=== PATIENT | female | born 1995 | race Caucasian/White ===

== ENCOUNTER → 2019-12-06 14:16 | Outpatient (BNVA) | payer MEDICAID, SELFPAY | PROVIDERS: Family Provider Obstetrics & Gynecology; PCP Obstetrics & Gynecology; Visit Provider Nurse Practitioner Women's Health | DX: Z01.419 Encounter for gynecological examination (general) (routine) without abnormal findings (principal); Z11.3 Encounter for screening for infections with a predominantly sexual mode of transmission; N92.6 Irregular menstruation, unspecified; Z13.0 Encounter for screening for diseases of the blood and blood-forming organs and certain disorders involving the immune mechanism | CPT/HCPCS: 84146; 84439; 84443; 84702; 85025; 87491; 87591; 87661; 88175 ==

== ENCOUNTER → 2019-12-27 16:13 | Outpatient (BNVA) | payer MEDICAID, SELFPAY | PROVIDERS: Family Provider Obstetrics & Gynecology; PCP Obstetrics & Gynecology; Visit Provider Obstetrics & Gynecology | DX: R79.89 Other specified abnormal findings of blood chemistry (principal); N92.6 Irregular menstruation, unspecified | CPT/HCPCS: 76830; 84443 ==

== ENCOUNTER → 2020-01-18 14:45 | Outpatient (BNVA) | payer MEDICAID, SELFPAY | PROVIDERS: Family Provider Obstetrics & Gynecology; PCP Obstetrics & Gynecology; Visit Provider Nurse Practitioner Women's Health | DX: N92.6 Irregular menstruation, unspecified (principal) | CPT/HCPCS: 81025; 88305 ==

== ENCOUNTER → 2020-07-26 15:09 | Outpatient (BNVA) | payer BC, MEDICAID, SELFPAY | PROVIDERS: Family Provider Obstetrics & Gynecology; PCP Obstetrics & Gynecology; Visit Provider Emergency Medicine | DX: J35.1 Hypertrophy of tonsils (principal); J02.9 Acute pharyngitis, unspecified; J03.90 Acute tonsillitis, unspecified | CPT/HCPCS: 87880 ==

== ENCOUNTER → 2020-08-09 16:20 | Outpatient (BNVA) | payer BC, MEDICAID, SELFPAY | PROVIDERS: Family Provider Obstetrics & Gynecology; PCP Obstetrics & Gynecology; Visit Provider Nurse Practitioner Women's Health | DX: N92.6 Irregular menstruation, unspecified (principal); E66.01 Morbid (severe) obesity due to excess calories | CPT/HCPCS: 80053; 84702; 85025 ==

== ENCOUNTER 2020-09-03 16:52 | Emergency (ER) | payer MEDICAID, BC, SELFPAY ==
[2020-09-03 17:46] VITALS: BP 133/105; PULSE 120; RESP 15; TEMP 37; O2SAT 94; BMI 60.7
--- NOTE | 2020-09-03 17:58 | ED_ITS ---
HPI - Skin/Abscess/Foreign Bdy General: Chief complaint: Skin/Abscess/Foreign Body Stated complaint: Rash/Bumps Across Chest Area Time Seen by Provider: 09/03/20 17:52 Source: patient Mode of arrival: ambulatory Limitations: no limitations History of Present Illness: Associated symptoms: Deny chills, fever(s), nausea or vomiting Review of Systems Const: Denies: fever(s) or chills Eyes: Denies: change in vision, blurry vision, blind spots, photophobia, eye discomfort, eye discharge, eye redness, floaters or seeing flashes ENMT: Denies: throat pain, uvular edema, enlarged tonsils, odynophagia, hoarseness, mouth pain, swelling of lips/tongue, oral sores, bleeding gums, dental pain, dry mouth, ear or mastoid pain, ear discharge, change in hearing, tinnitus, disequilibrium, nasal discharge, nasal congestion, post nasal drip or sinus pain Card: Denies: chest pain, palpitations, irregular heart rhythm, edema, swelling of feet/ankles, lightheadedness, syncope, pre-syncope, dyspnea on exertion, orthopnea, leg pain with exertion or acrocyanosis Resp: Denies: dyspnea, productive cough, non-productive cough, wheezing, stridor, pain on inspiration, change in phlegm color, hemoptysis or chest congestion GI: Denies: nausea or vomiting : Denies: flank pain, difficulty voiding, dysuria, urinary frequency, urinary urgency, urinary hesitancy or hematuria Musc: Denies: neck pain, back pain, extremity pain, extremity swelling, joint pain, joint swelling, joint redness, joint warmth or deformity Skin/Breast: Reports: rash (burning rash to right side of chest wall anterior and posterios); Denies: pruritus, erythema, sores, new lesions, changes in skin color or dry skin Neuro: Denies: headache(s), numbness in extremities, weakness in extremities, sensory changes, lack of coordination, difficulty walking, frequent falls, dizziness, vertigo, confusion, behavioral changes, Slurred speech present, difficulty communicating thoughts or seizure-like activity Psych: Denies: anxiety, depression, suicidal ideation or homicidal ideation Endo: Denies: polyuria, polydipsia, tired all the time, cold intolerance, excessive sweating, flushing, hot flashes or heat intolerance Robel/Lymph: Denies: easy bruising, easy bleeding, petechiae, purpura, enlarged lymph nodes or tender lymph nodes All/Imm: Denies: urticaria, throat swelling, tongue swelling, facial swelling, acute wheezing or itchy eyes PFSH ED PFSH: Medical History Chronic tonsillar hypertrophy History of kidney problems Per patient's mother, patient had a 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 She states they were discussing surgery due to the kidney. However, the kidney started functioning. Renal ultrasound 01/16/2017 did NOT show significant atrophy of the left kidney. No hydronephrosis. Irregular menses Morbid obesity Pelvic pain Surgical History History of section, low transverse (~09/01/18) Dr. Torres at [facility] Family History Sister No problems noted. Mother Thyroid disease Father Hypertension Diabetes Stroke Thyroid disease Grandmother Thyroid disease maternal and paternal Grandfather Thyroid disease maternal and paternal Family/Other Breast cancer maternal great aunt Denies family history of Colon cancer Ovarian cancer Heart disease Hypercholesteremia Uterine cancer Social History Smoking and tobacco status: current every day smoker cigarettes Packs smoked per day: 0.5 Years cigarettes smoked: 8 Additional social history: - Tobacco: currently 1/2 ppd Alcohol: None Drug: None Physical Exam Const: COMMON NORMALS: no acute distress, patient oriented x3, healthy appearing, alert and well nourished GENERAL APPEARANCE: cooperative, comfortable, well kempt and well developed; not ill appearing ORIENTATION/CONSCIOUSNESS: Yes awake, Yes oriented to person, Yes oriented to place and Yes oriented to time HENMT: COMMON NORMALS: normocephalic, atraumatic, hearing grossly normal bilaterally, external ears normal, EAC's normal, TM's normal bilaterally, Normal external nose present, Normal nasal mucous membranes and turbinates present and moist oral mucous membranes HEAD & SCALP: normal to inspection, normocephalic and atraumatic FACE & SINUS: normal facial exam, sinuses nontender and face symmetric NOSE: Normal external nose present, Normal nares present, Normal nasal mucous membranes and turbinates present, No nasal discharge present and Abnormal external nose present EXTERNAL EAR: Yes external ears normal and Yes mastoids normal EXTERNAL AUDITORY CANAL: EAC's normal TYMPANIC MEMBRANE: TM's normal bilaterally MOUTH: Normal oral and palatal mucosa present, lip normal, tongue normal and Normal salivary glands and ducts present THROAT: no uvular edema Eye: COMMON NORMALS: Equal, round and reactive pupils present, EOMs intact bilaterally, conjunctivae normal, no scleral icterus and no papilledema GENERAL EYE: appearance normal, both eyes and all related structures EYELID: eyelids normal CONJUNCTIVA: Yes conjunctivae normal SCLERA: sclerae normal CORNEA: Yes corneas normal PUPIL: Yes Equal, round and reactive pupils present DIRECT OPHTHALMOSCOPY: Yes no papilledema Neck/C-Spine: COMMON NORMALS: no JVD Resp: COMMON NORMALS: normal respiratory effort, No retractions, No use of accessory muscles and clear to auscultation bilaterally EFFORT & INSPECTION: Yes able to speak in complete sentences and Yes symmetric chest movement AUSCULTATION: clear to auscultation bilaterally Cardio: COMMON NORMALS: no JVD, regular rate and regular rhythm RATE: regular rate RHYTHM: regular rhythm Extremity: COMMON NORMALS: normal to inspection, full ROM and capillary refill normal GENERAL: Yes normal exam except as noted Neuro: COMMON NORMALS: patient oriented x3, CN's II-XII intact bilaterally, moves all extremities, no focal motor deficits, no sensory deficits noted, deep tendon reflexes 2+ bilaterally and gait normal SENSORIUM/ORIENTATION: Yes alert, Yes oriented to person, Yes oriented to place and Yes oriented to time Psych: COMMON NORMALS: mental status grossly normal, Normal thought process present, cooperative, normal affect, speech normal, activity/motor behavior normal, denies hallucinations, denies homicidal ideation and denies suicidal ideation APPEARANCE: Yes grossly normal and Yes well kempt ATTITUDE: Yes calm ACTIVITY/MOTOR BEHAVIOR: Yes appropriate eye contact SPEECH: Yes normal speech THOUGHT PROCESS: Normal thought process present THOUGHT CONTENT: Yes Normal thought content present ATTENTION/CONCENTRATION: Yes attention grossly intact MEMORY/COGNITION: Yes memory grossly intact INSIG HT: Good insight present (Psych) JUDGEMENT: Good judgement present (Psych) Skin: COMMON NORMALS: no rashes or lesions noted (vesicular ccrusting erythema rash noted to anterior and posteriot chest wal), no wounds, turgor normal, no jaundice, no petechiae and no mottling GENERAL SKIN EXAM: no rashes or lesions noted (vesicular ccrusting erythema rash noted to anterior and posteriot chest wal) and turgor normal Course Vital Signs: Vital signs: Vital Signs Temperature 98.6 F 09/03/20 17:46 Pulse Rate 120 H 09/03/20 17:46 Respiratory Rate 15 09/03/20 17:46 Blood Pressure 133/105 09/03/20 17:46 Pulse Oximetry 94 09/03/20 17:46 MDM - Skin/Abscess/Foreign Bdy MDM Narrative: Medical decision making narrative: Pt is well appearing non toxic and in no acute distress. pt is afebrile and has no evidence of menigeal irritation. Pt rash is c/w shingles and does not cross midline. I will start patient on appropriate treatment and discuss home care and return precautions with patient. Discharge Plan Discharge Patient Disposition: Home Clinical Impression: Shingles Qualifiers: Herpes zoster complications: without complications Qualified Code(s): B02.9 - Zoster without complications Condition: Stable Prescriptions: New valacyclovir 1 gram tablet 1,000 mg PO BID 10 Days Qty: 20 RF: 0 No Action acetaminophen [Tylenol] 325 mg capsule 325 mg PO QID PRNRF: 0 silver nitrate applicators 75-25 % stick 1 applic TOPICAL ONCE Qty: 1 RF: 0 metformin 500 mg tablet extended release 24 hr 1,000 mg PO DAILY Qty: 60 RF: 6 Discharge Orders: Discharge ED (Routine); Ordered 09/03/20 Ordered By: Donna Rosales Referrals: Moreno Lambert MD [Primary Care Provider] - Discharge Diet: Advance as tolerated Discharge Activity: Increase activity as tolerated Patient Instructions: Opioid Safety Activity Restrictions/Additional Instructions: Please follow discharge instructions and take medications as directed Cool compresses to area of discomfort Coding Level of Care Code ED Digital Traffic Coordinator for [facility]
== END 2020-09-03 18:52 | disposition home or self-care (01) ==
PROVIDERS: Emergency Provider Registered Nurse; PCP Obstetrics & Gynecology
DX: B02.9 Zoster without complications (principal); F17.210 Nicotine dependence, cigarettes, uncomplicated
CPT/HCPCS: 99282

== ENCOUNTER → 2020-12-06 15:25 | Outpatient (BNVA) | payer BC, MEDICAID, SELFPAY | PROVIDERS: PCP Obstetrics & Gynecology; Visit Provider Nurse Practitioner Women's Health | DX: N92.6 Irregular menstruation, unspecified (principal) | CPT/HCPCS: 84702 ==

== ENCOUNTER → 2021-02-07 16:20 | Outpatient (BNVA) | payer BC, MEDICAID, SELFPAY | PROVIDERS: PCP Obstetrics & Gynecology; Visit Provider Obstetrics & Gynecology | DX: E28.2 Polycystic ovarian syndrome (principal); N92.6 Irregular menstruation, unspecified | CPT/HCPCS: 83036; 83525; 84443; 84702 ==

== ENCOUNTER → 2021-02-13 14:46 | Outpatient (BNVA) | payer BC, MEDICAID, SELFPAY | PROVIDERS: PCP Obstetrics & Gynecology; Visit Provider Nurse Practitioner Women's Health | DX: N92.6 Irregular menstruation, unspecified (principal); E66.01 Morbid (severe) obesity due to excess calories | CPT/HCPCS: 76830 ==

== ENCOUNTER → 2021-03-07 14:23 | Outpatient (BNVA) | payer BC, MEDICAID, SELFPAY | PROVIDERS: PCP Obstetrics & Gynecology; Referring Provider Obstetrics & Gynecology; Visit Provider Internal Medicine | DX: N91.2 Amenorrhea, unspecified (principal); R79.89 Other specified abnormal findings of blood chemistry; N64.3 Galactorrhea not associated with childbirth; H53.2 Diplopia; E66.01 Morbid (severe) obesity due to excess calories; Z68.44 Body mass index [BMI] 60.0-69.9, adult | CPT/HCPCS: 99204 ==

== ENCOUNTER 2021-03-07 15:06 | Outpatient (CLI) | payer BC, MEDICAID, SELFPAY ==
[2021-03-07 16:22] LABS: Free T4 Free Thyroxine 0.94 ng/dL (0.82-1.77); Thyroid Stimulating Hormone 4.61 uIU/mL (0.27-4.20)
[2021-03-07 17:06] LABS: Follicle Stimulating Hormone 4.5 mIU/mL; Luteinizing Hormone 10.6 mIU/mL (0.5-41.7); Prolactin 8.23 ng/mL (4.8-23.3)
[2021-03-08 11:13] LABS: T3 Total 142 ng/dL (76-181)
[2021-03-08 14:12] LABS: Thyroglobulin AB <1 IU/mL (< or = 1)
[2021-03-08 14:26] LABS: Thyroid Peroxidase Antobodies 1 IU/mL (<9)
[2021-03-13 20:13] LABS: Estrogens Total 607.2 pg/mL
== END 2021-03-07 15:07 | disposition home or self-care (01) ==
PROVIDERS: PCP Nurse Practitioner Women's Health; Visit Provider Internal Medicine
DX: N64.3 Galactorrhea not associated with childbirth (principal); N91.2 Amenorrhea, unspecified; R79.89 Other specified abnormal findings of blood chemistry
CPT/HCPCS: 36415; 82672; 83001; 83002; 83516; 84146; 84439; 84443; 84480; 86376; 86800

== ENCOUNTER → 2021-05-13 14:49 | Outpatient (BNVA) | payer BC, MEDICAID, SELFPAY | PROVIDERS: PCP Nurse Practitioner Women's Health; Visit Provider Internal Medicine | DX: E03.9 Hypothyroidism, unspecified (principal); R79.89 Other specified abnormal findings of blood chemistry; N91.2 Amenorrhea, unspecified; N64.3 Galactorrhea not associated with childbirth; E66.01 Morbid (severe) obesity due to excess calories; Z68.44 Body mass index [BMI] 60.0-69.9, adult; H53.2 Diplopia; F17.200 Nicotine dependence, unspecified, uncomplicated | CPT/HCPCS: 99214 ==

== ENCOUNTER 2021-05-22 16:37 | Outpatient (CLI) | payer BC, MEDICAID, SELFPAY ==
[2021-05-22 19:42] LABS: Free T4 Free Thyroxine 1.39 ng/dL (0.82-1.77); Thyroid Stimulating Hormone 1.91 uIU/mL (0.27-4.20)
[2021-05-30 16:21] LABS: Estrogens Total 535.4 pg/mL
== END 2021-05-22 16:38 | disposition home or self-care (01) ==
PROVIDERS: PCP Nurse Practitioner Women's Health; Visit Provider Internal Medicine
DX: E03.9 Hypothyroidism, unspecified (principal); R79.89 Other specified abnormal findings of blood chemistry; N91.2 Amenorrhea, unspecified
CPT/HCPCS: 36415; 82672; 84439; 84443

== ENCOUNTER → 2021-07-11 15:06 | Outpatient (BNVA) | payer BC, MEDICAID, SELFPAY | PROVIDERS: PCP Nurse Practitioner Women's Health; Visit Provider Internal Medicine | DX: E03.9 Hypothyroidism, unspecified (principal); N64.3 Galactorrhea not associated with childbirth; H53.2 Diplopia; E66.01 Morbid (severe) obesity due to excess calories; Z68.44 Body mass index [BMI] 60.0-69.9, adult; F17.210 Nicotine dependence, cigarettes, uncomplicated | CPT/HCPCS: 99214 ==

== ENCOUNTER 2021-08-05 15:25 | Outpatient (CLI) | payer BC, MEDICAID, SELFPAY ==
--- NOTE | 2021-08-05 15:32 | MR_ITS ---
WS: [id number] MRI HEAD WITHOUT CONTRAST TECHNIQUE: Sagittal T1, T2 axial, T2 axial FLAIR, axial and coronal T1 images, axial susceptibility w eighted imaging, axial diffusion weighted images, and coronal T2 images were obtained. CLINICAL INFORMATION: Changes to pituitary gland COMPARISON: None. FINDINGS: Contrast was not administered. Patient elected to end the exam early. No evidence of restricted diffusion to suggest acute ischemia. Ventricular system and basal cisterns are patent. Normal posterior fossa. Normal vascular flow voids at the skull base. No extra-axial flui d collections. No evidence of mass or mass effect. Mild mucosal thickening in the ethmoid air cells a nd frontal sinuses. Mastoid air cells well aerated. No hemosiderin on susceptibly weighted images. Normal optic chiasm and pituitary infundibulum. Tempor al lobes and hippocampal formations are normal in appearance. Normal cavernous sinuses and Meckel's c ave. Noncontrast sella appears normal although incompletely evaluated. No suprasellar mass. MR/MR head wo con* [id number] IMPRESSION: 1. Contrast not administered. Patient elected to terminate the exam early. 2. No evidence of restricted diffusion to suggest acute ischemia. 3. No suspicious intracranial signal abnormalities. 4. Noncontrast sella appears unremarkable. Normal optic chiasm and pituitary i nfundibulum. No evidence of suprasellar mass. Incomplete evaluation of the sell a without contrast. 5. Mild mucosal thickening in the frontal sinuses and paranasal sinuses. Masto id air cells well aerated.
== END 2021-08-05 15:26 | disposition home or self-care (01) ==
LOC: RAD 15:26
PROVIDERS: PCP Nurse Practitioner Women's Health; Visit Provider Internal Medicine
DX: E23.6 Other disorders of pituitary gland (principal)
CPT/HCPCS: 70551

== ENCOUNTER → 2021-09-12 16:21 | Outpatient (BNVA) | payer BC, MEDICAID, SELFPAY | PROVIDERS: PCP Nurse Practitioner Women's Health; Visit Provider Internal Medicine | DX: E03.9 Hypothyroidism, unspecified (principal) | CPT/HCPCS: 84439; 84443 ==

== ENCOUNTER 2021-09-13 15:34 | Outpatient (CLI) | payer BC, MEDICAID, SELFPAY ==
[2021-09-13 16:52] LABS: Free T4 Free Thyroxine 1.44 ng/dL (0.82-1.77); Thyroid Stimulating Hormone 1.69 uIU/mL (0.27-4.20)
== END 2021-09-13 15:35 | disposition home or self-care (01) ==
LOC: LAB 15:41
PROVIDERS: PCP Nurse Practitioner Women's Health; Visit Provider Internal Medicine
DX: E03.9 Hypothyroidism, unspecified (principal); R79.89 Other specified abnormal findings of blood chemistry
CPT/HCPCS: 36415; 84439; 84443

== ENCOUNTER → 2021-09-16 14:59 | Outpatient (BNVA) | payer BC, MEDICAID, SELFPAY | PROVIDERS: PCP Nurse Practitioner Women's Health; Visit Provider Internal Medicine | DX: E03.9 Hypothyroidism, unspecified (principal); N64.3 Galactorrhea not associated with childbirth; H53.2 Diplopia; E66.01 Morbid (severe) obesity due to excess calories; G43.909 Migraine, unspecified, not intractable, without status migrainosus; Z68.44 Body mass index [BMI] 60.0-69.9, adult; F17.210 Nicotine dependence, cigarettes, uncomplicated | CPT/HCPCS: 99214 ==

== ENCOUNTER → 2021-11-25 14:57 | Outpatient (BNVA) | payer BC, MEDICAID, SELFPAY | PROVIDERS: PCP Family Medicine; Visit Provider Family Medicine | DX: E03.9 Hypothyroidism, unspecified (principal); F51.01 Primary insomnia; I10 Essential (primary) hypertension; F41.9 Anxiety disorder, unspecified | CPT/HCPCS: 84439; 84443 ==

== ENCOUNTER → 2021-12-04 14:56 | Outpatient (BNVA) | payer BC, MEDICAID, SELFPAY | PROVIDERS: PCP Family Medicine; Visit Provider Internal Medicine | DX: E03.9 Hypothyroidism, unspecified (principal); R79.89 Other specified abnormal findings of blood chemistry; N64.3 Galactorrhea not associated with childbirth; H53.2 Diplopia; R53.83 Other fatigue; G43.909 Migraine, unspecified, not intractable, without status migrainosus; E66.01 Morbid (severe) obesity due to excess calories; Z68.44 Body mass index [BMI] 60.0-69.9, adult; F17.210 Nicotine dependence, cigarettes, uncomplicated; Z79.4 Long term (current) use of insulin | CPT/HCPCS: 99214 ==

== ENCOUNTER 2022-06-04 13:46 | Outpatient (CLI) | payer BC, MEDICAID, SELFPAY ==
[2022-06-04 14:57] LABS: Free T4 Free Thyroxine 1.18 ng/dL (0.82-1.77); Thyroid Stimulating Hormone 6.77 uIU/mL (0.27-4.20)
[2022-06-04 15:21] LABS: Prolactin 8.16 ng/mL (4.8-23.3)
== END 2022-06-04 13:47 | disposition home or self-care (01) ==
PROVIDERS: PCP Family Medicine; Visit Provider Internal Medicine
DX: E03.9 Hypothyroidism, unspecified (principal)
CPT/HCPCS: 36415; 84146; 84439; 84443

== ENCOUNTER → 2022-12-09 15:47 | Outpatient (BNVA) | payer BC, MEDICAID, SELFPAY | PROVIDERS: PCP Family Medicine; Referring Provider Internal Medicine; Visit Provider Internal Medicine | DX: E03.9 Hypothyroidism, unspecified (principal) | CPT/HCPCS: 84439; 84443 ==

== ENCOUNTER → 2023-01-07 14:55 | Outpatient (BNVA) | payer BC, MEDICAID, SELFPAY | PROVIDERS: PCP Family Medicine; Visit Provider Family Medicine | DX: E28.2 Polycystic ovarian syndrome (principal); I10 Essential (primary) hypertension; R00.0 Tachycardia, unspecified; J06.9 Acute upper respiratory infection, unspecified; G47.00 Insomnia, unspecified; J45.20 Mild intermittent asthma, uncomplicated; G43.009 Migraine without aura, not intractable, without status migrainosus; Z13.220 Encounter for screening for lipoid disorders; Z13.6 Encounter for screening for cardiovascular disorders; E03.9 Hypothyroidism, unspecified; E66.01 Morbid (severe) obesity due to excess calories; Z68.44 Body mass index [BMI] 60.0-69.9, adult; F51.01 Primary insomnia | CPT/HCPCS: 80053; 80061; 84402; 84403 ==

== ENCOUNTER → 2023-05-14 13:14 | Outpatient (BNVA) | payer BC, MEDICAID, SELFPAY | PROVIDERS: PCP Family Medicine; Referring Provider Internal Medicine; Visit Provider Internal Medicine | DX: E03.9 Hypothyroidism, unspecified (principal); E66.01 Morbid (severe) obesity due to excess calories; Z68.44 Body mass index [BMI] 60.0-69.9, adult; R79.89 Other specified abnormal findings of blood chemistry | CPT/HCPCS: 84439; 84443 ==

== ENCOUNTER → 2023-12-18 10:01 | Outpatient (BNVA) | payer BC, MEDICAID, SELFPAY | PROVIDERS: PCP Family Medicine | DX: I10 Essential (primary) hypertension (principal) | CPT/HCPCS: 80053; 81025; 85025 ==

== ENCOUNTER → 2024-01-25 10:21 | Outpatient (BNVA) | payer BC, MEDICAID, SELFPAY | PROVIDERS: PCP Family Medicine | DX: R39.9 Unspecified symptoms and signs involving the genitourinary system (principal) | CPT/HCPCS: 81000 ==

== ENCOUNTER → 2024-01-27 12:39 | Outpatient (BNVA) | payer BC, SELFPAY | PROVIDERS: PCP Family Medicine; Visit Provider Nurse Practitioner Women's Health | DX: Z12.4 Encounter for screening for malignant neoplasm of cervix (principal); R53.83 Other fatigue; F51.01 Primary insomnia | CPT/HCPCS: 83036; 87624 ==

== ENCOUNTER → 2024-02-15 08:35 | Outpatient (BNVA) | payer BC, SELFPAY | PROVIDERS: PCP Family Medicine; Visit Provider Nurse Practitioner Women's Health | DX: N92.6 Irregular menstruation, unspecified (principal); N83.201 Unspecified ovarian cyst, right side | CPT/HCPCS: 76830 ==

== ENCOUNTER → 2024-03-02 14:38 | Outpatient (BNVA) | payer BC, SELFPAY | PROVIDERS: PCP Family Medicine; Visit Provider Nurse Practitioner | DX: J02.9 Acute pharyngitis, unspecified (principal) | CPT/HCPCS: 87880 ==

== ENCOUNTER 2024-03-18 11:41 | Outpatient (CLI) | payer BC, SELFPAY ==
--- NOTE | 2024-03-18 11:44 | XR_ITS ---
WS: [id number] Exam: XR shoulder LT min 2V* [id number] Date/Time of Exam: 03/18/2024 12:10 PM Reason For Exam: fall No fracture. The joints are preserved. Normal soft tissues. XR/XR shoulder LT min 2V* [id number] IMPRESSION: 1. Normal LEFT shoulder.
--- NOTE | 2024-03-18 11:44 | XR_ITS ---
WS: [id number] Exam: XR ribs LT 2V* [id number] Date/Time of Exam: 03/18/2024 12:10 PM Reason For Exam: rib pain No acute LEFT rib fracture or pneumothorax noted. Questionable small infiltrate in the LEFT lower lob e and trace LEFT basal pleural effusion. XR/XR ribs LT 2V* [id number] IMPRESSION: 1. Negative LEFT ribs. 2. Questionable small LEFT lower lobe infiltrate and small LEFT pleural effusio n. A detailed PA and lateral chest radiograph should be considered for follow-u p.
== END 2024-03-18 11:42 | disposition home or self-care (01) ==
LOC: RAD 11:42
DX: J90 Pleural effusion, not elsewhere classified (principal); M25.512 Pain in left shoulder; R05.8 Other specified cough
CPT/HCPCS: 71100; 73030

== ENCOUNTER → 2024-05-07 13:42 | Outpatient (BNVA) | payer SELFPAY | PROVIDERS: Visit Provider Emergency Medicine | DX: R05.9 Cough, unspecified (principal); R07.89 Other chest pain | CPT/HCPCS: 87400; 93005 ==

== ENCOUNTER 2025-02-12 17:47 | Emergency (ER) | payer SELFPAY ==
--- NOTE | 2025-02-12 17:54 | XRR_ITS ---
PROCEDURE INFORMATION: Exam: XR Chest Exam date and time: 02/12/2025 6:03 PM Age: 29 years old Clinical indication: Shortness of breath; Additional info: SOB TECHNIQUE: Imaging protocol: Radiologic exam of the chest. Views: 1 view. COMPARISON: CR XR ribs LT 2V* [id number] 03/18/2024 12:18 PM FINDINGS: Lungs: Unremarkable. No infiltrate/edema or consolidation. Pleural spaces: Unremarkable. No pleural effusion. No pneumothorax. Heart/Mediastinum: Unremarkable. No cardiomegaly. Bones/joints: Visualized osseous structures show no acute abnormality. XR/XR chest 1V portable [id number] IMPRESSION: No acute cardiopulmonary abnormality.
[2025-02-12 17:59] VITALS: BP 182/135; PULSE 110; RESP 16; TEMP 36.1; O2SAT 98; BMI 56.7
--- NOTE | 2025-02-12 18:05 | CTR_ITS ---
PROCEDURE INFORMATION: Exam: CT Neck With Contrast Exam date and time: 02/12/2025 6:21 PM Age: 29 years old Clinical indication: Tonsilitis; Throat pain; C/O sore throat with tonsillar swelling; Additional info: Neck pain/sore throat TECHNIQUE: Imaging protocol: Computed tomography of the neck with contrast. Radiation optimization: All CT scans at this facility use at least one of these dose optimization techniques: automated exposure control; mA and/or kV adjustment per patient size (includes targeted exams where dose is matched to clinical indication); or iterative reconstruction. Contrast material: OMNI 350; Contrast volume: 100 ml; Contrast route: INTRAVENOUS (IV); COMPARISON: MR head wo con* [id number] 08/05/2021 4:00 PM RADIATION DOSE METRICS: Total DLP (mGy-cm): 344.49 FINDINGS: Salivary glands: Parotid and submandibular salivary glands appear unremarkable. Pharynx: Generalized tonsillar enlargement and swelling is seen, with diffuse low-density edematous change throughout. No findings of a significant focal drainable abscess though micro abscesses likely present. Several small calcifications noted on the right side. Pharynx remains patent and unremarkable. Larynx: Laryngeal soft tissues and larynx appear unremarkable. Thyroid: A 11 mm hypodense nodule noted left thyroid gland. Trachea: Visualized trachea is unremarkable. Lungs: Unremarkable as visualized. Lymph nodes: Small shotty lymph nodes without significant lymph node enlargement. Vasculature: Vascular structures appear unremarkable. Bones/joints: Bone windows show no acute abnormality. CT/CT neck w con* [id number] IMPRESSION: 1. Generalized tonsillar enlargement and swelling is seen with diffuse low-density edematous change throughout and several small calcifications on the right. No findings of a significant focal drainable abscess though microabscesses likely present. No airway compromise. 2. 11 mm hypodense nodule left lobe thyroid gland. This can be evaluated with subsequent follow-up nonemergent thyroid ultrasound. COMMENTS: Consistent with the [employer]'s Incidental Findings Committee white paper (J Am Ami Radiol 2015): In patients under 35 years old with an incidental thyroid nodule equal to or greater than [address], MRI or extrathyroidal US, further evaluation with dedicated thyroid US is recommended for patients with normal life expectancy and without comorbidities. For smaller nodules without suspicious features, no further evaluation or follow up is recommended.
--- NOTE | 2025-02-12 18:07 | W.ED.URI ---
HPI - URI/Sore Throat General: Chief Complaint: Upper Respiratory Infection Stated Complaint: sore throat, hard to breathe at times Time Seen by Provider: 02/12/25 18:02 Source: patient Mode of arrival: ambulatory Limitations: no limitations History of Present Illness: 29-year-old female states that she has been having a sore throat over the last 2 days. States that she has felt like she had a hard time breathing slightly muffled voice. She had no problems with swallowing she denies any fevers she denies any sick contacts denies any worse improving factors. Related Data Home Medications ?Medication ?Instructions ?Recorded ?Confirmed acetaminophen 325 mg capsule 325 mg PO QID PRN 12/20/19 05/07/24 (Tylenol) Previous Rx's ?Medication ?Instructions ?Recorded levothyroxine 50 mcg tablet See Rx Instructions .Route 11/25/23 .COMPLEX #90 tabs amitriptyline 25 mg tablet 25 mg PO .at bedtime 90 days #90 12/18/23 tabs levalbuterol tartrate 45 2 inh inhalation Q6H #15 grams 12/18/23 mcg/actuation aerosol inhaler (Xopenex HFA) metoprolol succinate 100 mg 100 mg PO DAILY 90 days #90 tabs 12/18/23 tablet,extended release 24 hr medroxyprogesterone 10 mg tablet 10 mg PO QDAY #10 tabs 02/24/24 (Provera) exenatide 5 mcg/dose (250 5 mcg (0.02 mL) SUBCUT BID #1.2 mL 03/18/24 mcg/mL)1.2 mL subcutaneous pen injector ([employer]) famotidine 20 mg tablet (Pepcid) 20 mg PO DAILY #30 tabs 03/18/24 spironolactone 25 mg tablet 25 mg PO DAILY 30 days #30 tabs 03/18/24 albuterol sulfate 90 mcg/actuation 2 puff inhalation Q6H PRN 05/07/24 aerosol inhaler shortness of breath or wheezing #8.5 grams [id number]-[id number] 5 ml PO Q6H PRN cold symptoms #118 05/07/24 2 mg-30 mg-10 mg/5 mL oral syrup mL (Bromfed DM) cephalexin 500 mg capsule 500 mg PO TID 7 days #21 caps 02/12/25 Allergies Allergy/AdvReac Type Severity Reaction Status Date / Time amoxicillin Allergy rash itchy Verified 05/07/24 13:44 throat ciprofloxacin Allergy hallucinati Verified 05/07/24 13:44 ons metformin Allergy diarrrhea Verified 05/07/24 13:44 and pain and dizziness emesis, rashes morphine Allergy anaphylaxis Verified 05/07/24 13:44 Penicillins Allergy rash and Verified 05/07/24 13:44 itchy throat zinc AdvReac Mild ALGY-Rash Verified 05/07/24 13:44 Review of Systems ENMT: Reports: throat pain PFSH ED PFSH: Medical History (Updated 02/12/25 @ 19:42 by Dereje Rico MD) UTI (urinary tract infection) Hypertension Morbid obesity Chronic tonsillar hypertrophy Irregular menses History of kidney problems Per patient's mother, patient had a 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 She states they were discussing surgery due to the kidney. However, the kidney started functioning. Renal ultrasound 01/16/2017 did NOT show significant atrophy of the left kidney. No hydronephrosis. Pelvic pain Surgical History History of section, low transverse (~09/01/18) Dr. Torres at [facility] Family History Sister No problems noted. Mother Thyroid disease Father Hypertension Diabetes Stroke Thyroid disease Grandmother Thyroid disease maternal and paternal Grandfather Thyroid disease maternal and paternal Family/Other Breast cancer maternal great aunt Denies family history of Colon cancer Ovarian cancer Heart disease Hypercholesteremia Uterine cancer Social History (Updated 05/07/24 @ 14:06 by MARIANELA Henao) Smoking and tobacco/nicotine status: current every day tobacco/nicotine user cigarettes Packs smoked per day: 0.25 Years cigarettes smoked: 8 Alcohol intake: current Alcohol intake frequency: holidays/special occasions only Substance/Drug Use: never Adopted: No service: No Current occupational exposures/hazards: No Female Reproductive History: Spontaneous abortions: No Physical Exam Const: COMMON NORMALS: no acute distress, patient oriented x3 and healthy appearing HENMT: COMMON NORMALS: normocephalic and atraumatic HEAD & SCALP: normocephalic and atraumatic OTHER: Oropharyngeal erythema patient handling secretions well no uvular deviation Neck/C-Spine: COMMON NORMALS: full ROM and supple Chest: COMMONS NORMALS: normal inspection of the chest and normal palpation of entire chest wall Resp: COMMON NORMALS: normal respiratory effort, No retractions, No use of accessory muscles and clear to auscultation bilaterally AUSCULTATION: clear to auscultation bilaterally Cardio: COMMON NORMALS: regular rate, regular rhythm and No murmurs present (Cardio) RATE: regular rate RHYTHM: regular rhythm Extremity: COMMON NORMALS: normal to inspection and full ROM Neuro: COMMON NORMALS: patient oriented x3, moves all extremities and no focal motor deficits Psych: COMMON NORMALS: mental status grossly normal, Normal thought process present and cooperative THOUGHT PROCESS: Normal thought process present Skin: COMMON NORMALS: no rashes or lesions noted and no wounds GENERAL SKIN EXAM: no rashes or lesions noted Course Vital Signs: Vital signs: Vital Signs Temperature 97 F L 02/12/25 17:59 Pulse Rate 82 02/12/25 19:06 Respiratory Rate 16 02/12/25 17:59 Blood Pressure 122/77 02/12/25 19:06 Pulse Oximetry 98 02/12/25 19:06 Oxygen Delivery Me thod Room Air 02/12/25 19:06 MDM - URI/Sore Throat Medical Decision Making Patient presents here with sore throat differential includes retropharyngeal abscess normal peritonsillar abscess CT showed no signs of abscess. Likely has a pharyngitis. She is handling her secretions well she is in no distress here. Did give her Decadron along with fluids and Rocephin will prescribe her Keflex for home she is follow-up with PCP return if worsening she understands agrees to plan did go over imaging and blood work with her. Lab Data I reviewed the patient's lab results. 02/12/25 18:15 02/12/25 18:15 Radiology Impressions Chest X-Ray 02/12/25 17:54 IMPRESSION: No acute cardiopulmonary abnormality. Neck CT 02/12/25 18:05 IMPRESSION: 1. Generalized tonsillar enlargement and swelling is seen with diffuse low-density edematous change throughout and several small calcifications on the right. No findings of a significant focal drainable abscess though microabscesses likely present. No airway compromise. 2. 11 mm hypodense nodule left lobe thyroid gland. This can be evaluated with subsequent follow-up nonemergent thyroid ultrasound. COMMENTS: Consistent with the [employer]'s Incidental Findings Committee white paper (J Am Ami Radiol 2015): In patients under 35 years old with an incidental thyroid nodule equal to or greater than [address], MRI or extrathyroidal US, further evaluation with dedicated thyroid US is recommended for patients with normal life expectancy and without comorbidities. For smaller nodules without suspicious features, no further evaluation or follow up is recommended. Laboratory Results WBC 8.34 10^3/uL (3.29-11.43) 02/12/25 18:15 RBC 4.98 10^6/uL (3.85-5.65) 02/12/25 18:15 Hgb 13.90 g/dL (11.27-16.99) 02/12/25 18:15 Hct 42.2 % (36-47) 02/12/25 18:15 MCV 84.7 fl (85-98) L 02/12/25 18:15 MCH 27.9 pg (27-33) 02/12/25 18:15 MCHC 32.9 g/dL (30-55) 02/12/25 18:15 RDW 12.4 % (12.1-15.1) 02/12/25 18:15 Plt Count 125 10^3/cmm (157-399) L 02/12/25 18:15 MPV 12.7 fL (7.4-10.4) H 02/12/25 18:15 Neut % (Auto) 76.4 % 02/12/25 18:15 Lymph % (Auto) 16.5 % 02/12/25 18:15 Whitley % (Auto) 4.6 % 02/12/25 18:15 Eos % (Auto) 1.6 % 02/12/25 18:15 Baso % (Auto) 0.5 % 02/12/25 18:15 Neut # (Auto) 6.38 10^3/uL (1.8-7.7) 02/12/25 18:15 Lymph # (Auto) 1.4 10^3/uL (0.8-4.8) 02/12/25 18:15 Whitley # (Auto) 0.4 10^3/uL (0.2-0.9) 02/12/25 18:15 Eos # (Auto) 0.1 10^3/uL (0.0-0.8) 02/12/25 18:15 Baso # (Auto) 0.0 10^3/uL (0.0-0.1) 02/12/25 18:15 Nucleated RBC % (auto) 0 % 02/12/25 18:15 Nucleated RBCs # 0.0 /100WBC 02/12/25 18:15 Sodium 139 mmol/L (136-145) 02/12/25 18:15 Potassium 3.7 mmol/L (3.5-5.1) 02/12/25 18:15 Chloride 103 mmol/L (98-107) 02/12/25 18:15 Carbon Dioxide 24 mmol/L (22-29) 02/12/25 18:15 Anion Gap 15.7 (5-19) 02/12/25 18:15 BUN 5 mg/dL (6-20) L 02/12/25 18:15 Creatinine 0.6 mg/dL (0.5-0.9) 02/12/25 18:15 GFR Calculation 116.6 mL/min (90-130) 02/12/25 18:15 Glucose 91 mg/dL (65-115) 02/12/25 18:15 Calculated Osmolality 285 mOsm/kg (285-295) 02/12/25 18:15 Calcium 9.2 mg/dL (8.5-10.5) 02/12/25 18:15 Total Bilirubin 0.6 mg/dL (0.15-1.2) 02/12/25 18:15 AST 10 U/L (0-32) 02/12/25 18:15 ALT 10 U/L (0-33) 02/12/25 18:15 Alkaline Phosphatase 114 U/L (35-105) H 02/12/25 18:15 Total Protein 7.3 g/dL (6.6-8.7) 02/12/25 18:15 Albumin 3.8 g/dL (3.5-5.2) 02/12/25 18:15 Globulin 3.5 g/dL (1.3-4.6) 02/12/25 18:15 Group A Strep Rapid Negative (Negative) 02/12/25 19:00 All radiology interpretation(s) finalized by discharge Discharge Plan Discharge Patient Disposition: Home Clinical Impression: Pharyngitis Qualifiers: Pharyngitis/tonsillitis etiology: unspecified etiology Qualified Code(s): J02.9 - Acute pharyngitis, unspecified Condition: Stable Prescriptions: New cephalexin 500 mg capsule 500 mg PO TID 7 Days Qty: 21 0RF No Action acetaminophen [Tylenol] 325 mg capsule 325 mg PO QID PRN silver nitrate applicators 75-25 % stick 1 applic TOPICAL ONCE Qty: 1 0RF medroxyprogesterone [Provera] 10 mg tablet 10 mg PO QDAY Qty: 10 6RF Rx Instructions: take if skipped cycles for 60 days [place] 5 mcg/dose (250 mcg/mL) 1.2 mL pen injector 5 mcg SUBCUT BID Qty: 1.2 1RF Rx Instructions: 340 B famotidine [Pepcid] 20 mg tablet 20 mg PO DAILY Qty: 30 2RF spironolactone 25 mg tablet 25 mg PO DAILY 30 Days Qty: 30 2RF levothyroxine 50 mcg tablet See Rx Instructions .ROUTE .COMPLEX Qty: 90 1RF Dose Instruction: Take 1 tablet by mouth once daily Rx Instructions: Take 1 tablet by mouth once daily levalbuterol tartrate [Xopenex HFA] 45 mcg/actuation HFA aerosol inhaler 2 inh inhalation Q6H Qty: 15 5RF amitriptyline 25 mg tablet 25 mg PO .at bedtime 90 Days Qty: 90 2RF metoprolol succinate 100 mg tablet extended release 24 hr 100 mg PO DAILY 90 Days Qty: 90 2RF albuterol sulfate 90 mcg/actuation HFA aerosol inhaler 2 puff inhalation Q6H PRN (Reason: shortness of breath or wheezing) Qty: 8.5 0RF [id number]-[id number]-GF [Bromfed DM] 2-30-10 mg/5 mL syrup 5 ml PO Q6H PRN (Reason: cold symptoms) Qty: 118 0RF Discharge Orders: Discharge ED (Routine); Ordered 02/12/25 Ordered By: Dereje Rico Referrals: Maricel Saenz NP [Primary Care Provider, Family Practice] - 4-7 days Discharge Diet: Advance as tolerated Discharge Activity: Resume usual activity Patient Instructions: Pharyngitis (ED) Print Language: Turkmen Coding Level of Care Code ED 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
[2025-02-12 18:20] LABS: Hematocrit 42.2 % (36-47); Hemoglobin 13.90 g/dL (11.27-16.99); Mean Corpuscular HGB Conc 32.9 g/dL (30-55); Mean Corpuscular Hemoglobin 27.9 pg (27-33); Mean Corpuscular Volume 84.7 fl (85-98); Nucleated Red Blood Cells % 0 %; Platelet Count 125 10^3/cmm (157-399); Red Blood Count 4.98 10^6/uL (3.85-5.65); White Blood Count 8.34 10^3/uL (3.29-11.43)
[2025-02-12] MEDS: iohexol 350 mg/mL 500 mL Btl (per mL) IV (18:24)
[2025-02-12 18:37] LABS: Alanine Aminotransferase 10 U/L (0-33); Albumin Level 3.8 g/dL (3.5-5.2); Alkaline Phosphatase 114 U/L (35-105); Anion Gap 15.7 (5-19); Aspartate Amino Transferase 10 U/L (0-32); Blood Urea Nitrogen 5 mg/dL (6-20); Calcium 9.2 mg/dL (8.5-10.5); Carbon Dioxide 24 mmol/L (22-29); Chloride 103 mmol/L (98-107); Creatinine Clr Calc Pharmacy 185.0975; Globulin 3.5 g/dL (1.3-4.6); Glucose 91 mg/dL (65-115); Osmolality Calculated 285 mOsm/kg (285-295); Potassium 3.7 mmol/L (3.5-5.1); Sodium 139 mmol/L (136-145); Total Protein 7.3 g/dL (6.6-8.7)
[2025-02-12] MEDS: cefTRIAXone 1,000 mg SDV 1000 MG IVP (18:55)
[2025-02-12 19:06] VITALS: BP 122/77; PULSE 82; O2SAT 98
[2025-02-12 19:14] LABS: Rapid Strep A Test Negative (Negative)
[2025-02-12 20:05] VITALS: BP 108/68; PULSE 82; O2SAT 95
== END 2025-02-12 20:06 | disposition home or self-care (01) ==
PROVIDERS: Emergency Provider Emergency Medicine
DX: J02.9 Acute pharyngitis, unspecified (principal); F17.210 Nicotine dependence, cigarettes, uncomplicated; I10 Essential (primary) hypertension
CPT/HCPCS: 36415; 70491; 71045; 80053; 85025; 87081; 87880; 96361; 96374; 96375; 99285; J0696; J1100; J1885; J7030

== ENCOUNTER → 2025-02-20 12:22 | Outpatient (BNVA) | payer SELFPAY | DX: R53.83 Other fatigue (principal) | CPT/HCPCS: 83036; 84443 ==